=== PATIENT | male | born 1945 ===

== ENCOUNTER 2018-06-29 07:27 | Day surgery (SDC) | payer MEDICARE, OTHER ==
[~2018-06-29 07:27] MED LIST: Acetaminophen TAB* 325 MG PO PRN; Buffered Lidocaine 1% SYRIN* 1 ML/SYRINGE INTRADERM ONE
[2018-06-29] MEDS ORDERED: Midazolam* 1 MG/ML 2 ML VIAL (2 MG) ONE ×2 (09:17→09:36)
[2018-06-29] MEDS ORDERED: Neomycin/Polymy/Dex OPTH.SUSP* MAXITROL 0.1% 5 ML ONE (09:31)
[2018-06-29] MEDS ORDERED: acetaZOLAMIDE TAB* 250 MG ONE (09:31)
[2018-06-29] MEDS ORDERED: Proparacaine 0.5% OPHTH.SOL* 15 ML BTL ONE (09:31)
[2018-06-29] MEDS ORDERED: Ketorolac 0.5% OPHTH (NF) 0.5 % 5 ML BTL ONE (09:31)
[2018-06-29] MEDS ORDERED: Phenylephrine OPHTH SOL 2.5%* 2 ML ONE (09:31)
[2018-06-29] MEDS ORDERED: Lidocaine 1%* 5 ML VIAL ONE (09:31)
[2018-06-29] MEDS ORDERED: Lidocaine 2% EPI 1:200000 MPF*10-20 ML VIAL ONE (09:31)
[2018-06-29] MEDS ORDERED: Povidone Iodine 5% OPTH* 30 ML BTL ONE (09:31)
[2018-06-29] MEDS ORDERED: Cyclopentolate 1% OPTH.SOL* 2 ML BTL ONE (09:31)
[2018-06-29 10:34] VITALS: BP 131/73
--- NOTE | 2018-06-29 10:41 | OP ---
OPERATIVE NOTE: DATE OF OPERATION: 06/29/18 DATE OF : 43 SURGEON: Nikhil Last M.D. PREOPERATIVE DIAGNOSIS: Cataract, right eye. POSTOPERATIVE DIAGNOSIS: Cataract, right eye. OPERATIVE PROCEDURE: Extracapsular cataract extraction with intraocular lens implant, right eye. PROCEDURE: The patient was brought to the operating room after being given 1/2% Alcaine with epineph rine drops in the preoperative area. The eye was prepped and draped in the usual sterile fashion. S terile drape and eyelid speculum were placed. Again, topical 1/2% Alcaine with epinephrine was given . A paracentesis incision was made at the 9 o'clock position with the No.75 blade. Clear cornea inc ision 2.2 x 2.2-mm was created at the 12 o'clock position starting at the anterior limbus using the 2 .2-mm keratome. The anterior chamber was irrigated with 0.4 mL of 1% non-preservative intracameral l idocaine and filled with DisCoVisc. A capsulorrhexis was completed using the cystotome and the Utrat a forceps. Hydrodissection was performed with balanced salt solution. The lens nucleus was removed w ith the Phacoemulsification handpiece without incident. Cortex was removed with the irrigation-aspir ation handpiece. The capsular bag was re-inflated using DisCoVisc and an SN60WF 20.5 implant was ins erted with the shooter. The pupil was very small, so a Malyugin ring was used to dilate the pupil pr ior to capsulorrhexis, removed after insertion of the lens. The irrigation-aspiration handpiece was used to remove all residual DisCoVisc. The eye was refilled with balanced salt solution and the woun d checked and found to be watertight. Topical Maxitrol drops were given. Indication for complex cataract surgery, pupil abnormalities requiring pupil dilation device. [id number] #: [id number]
== END 2018-06-29 10:30 | disposition home or self-care (01) ==
LOC: OREAST 07:27
PROVIDERS: ATTEND Specialist
DX: H25.811 Combined forms of age-related cataract, right eye (principal); H21.561 Pupillary abnormality, right eye; H43.813 Vitreous degeneration, bilateral; G43.809 Other migraine, not intractable, without status migrainosus; J44.9 Chronic obstructive pulmonary disease, unspecified; G47.33 Obstructive sleep apnea (adult) (pediatric); I10 Essential (primary) hypertension; G60.9 Hereditary and idiopathic neuropathy, unspecified; M21.379 Foot drop, unspecified foot; L57.0 Actinic keratosis
CPT/HCPCS: A9270-GY; J2250; V2632

== ENCOUNTER 2018-07-06 06:43 | Day surgery (SDC) | payer MEDICARE, OTHER ==
[~2018-07-06 06:43] MED LIST changes: -Acetaminophen TAB* 325 MG PO PRN
[2018-07-06] MEDS ORDERED: fentaNYL* 50 MCG/ML 2 ML VIAL (100 MCG VIAL) ONE (07:34)
[2018-07-06] MEDS ORDERED: Midazolam* 1 MG/ML 2 ML VIAL (2 MG) ONE ×2 (07:34→08:04)
[2018-07-06 08:33] VITALS: BP 143/71
[2018-07-06] MEDS ORDERED: Ketorolac 0.5% OPHTH (NF) 0.5 % 5 ML BTL ONE (10:02)
[2018-07-06] MEDS ORDERED: Cyclopentolate 1% OPTH.SOL* 2 ML BTL ONE (10:02)
[2018-07-06] MEDS ORDERED: Povidone Iodine 5% OPTH* 30 ML BTL ONE (10:02)
[2018-07-06] MEDS ORDERED: Lidocaine 1%* 5 ML VIAL ONE (10:02)
[2018-07-06] MEDS ORDERED: Phenylephrine OPHTH SOL 2.5%* 2 ML ONE (10:02)
[2018-07-06] MEDS ORDERED: Lidocaine 2% EPI 1:200000 MPF*10-20 ML VIAL ONE (10:02)
[2018-07-06] MEDS ORDERED: acetaZOLAMIDE TAB* 250 MG ONE (10:02)
[2018-07-06] MEDS ORDERED: Neomycin/Polymy/Dex OPTH.SUSP* MAXITROL 0.1% 5 ML ONE (10:02)
[2018-07-06] MEDS ORDERED: Proparacaine 0.5% OPHTH.SOL* 15 ML BTL ONE (10:03)
--- NOTE | 2018-07-06 10:05 | OP ---
DATE OF OPERATION: 07/06/2018. DATE OF : 1945. SURGEON: Nikhil Last M.D. PREOPERATIVE DIAGNOSIS: Cataract left eye. POSTOPERATIVE DIAGNOSIS: Cataract left eye. OPERATIVE PROCEDURE: Extracapsular cataract extraction with intraocular lens implant left eye. PROCEDURE: The patient was brought to the operating room after being given 1/2% Alcaine with epineph rine drops in the preoperative area. The eye was prepped and draped in the usual sterile fashion. S terile drape and eyelid speculum were placed. Again, topical 1/2% Alcaine with epinephrine was given . A paracentesis incision was made at the 3 o'clock position with the No.75 blade. Clear cornea inc ision 2.2 x 2.2-mm was created at the 6 o'clock position starting at the anterior limbus using the 2. 2-mm keratome. The anterior chamber was irrigated with 0.4 mL of 1% non-preservative intracameral li docaine and filled with DisCoVisc. A capsulorrhexis was completed using the cystotome and the Utrata forceps. Hydrodissection was performed with balanced salt solution. The lens nucleus was removed wi th the Phacoemulsification handpiece without incident. Cortex was removed with the irrigation-aspira tion handpiece. The capsular bag was re-inflated using DisCoVisc and an SN60WF 20.5 implant was inse rted with the shooter. The irrigation-aspiration handpiece was used to remove all residual DisCoVisc . The eye was refilled with balanced salt solution and the wound checked and found to be watertight. Topical Maxitrol drops were given. [id number]/[facility] #: [id number]
[2018-07-07] MEDS ORDERED: Acetaminophen TAB* 325 MG PO PRN (05:00)
== END 2018-07-06 08:33 | disposition home or self-care (01) ==
LOC: OREAST 06:43
PROVIDERS: ATTEND Specialist
DX: H25.812 Combined forms of age-related cataract, left eye (principal); H43.813 Vitreous degeneration, bilateral; G47.33 Obstructive sleep apnea (adult) (pediatric); J44.9 Chronic obstructive pulmonary disease, unspecified; Z87.891 Personal history of nicotine dependence; L57.0 Actinic keratosis
CPT/HCPCS: A9270-GY; J2250; J3010; V2632